=== PATIENT | female | born 1975 | race Two or more races ===

== ENCOUNTER 2023-04-26 15:28 | Outpatient (REF) | payer MEDICAID, SELFPAY ==
--- NOTE | ~2023-04-26 | XR_ITS ---
EXAMINATION: XR LUMBOSACRAL SPINE CLINICAL INFORMATION: Chronic low back pain for years. COMPARISON: None available. TECHNIQUE: AP, and 3 lateral views of the lumbosacral spine. FINDINGS: Lumbar vertebral body heights are preserved. Atherosclerotic aortic calcifications. Facet arthritis in the lower lumbar spine. Mild multilevel lumbar spondylosis. Mild loss of disc space height at L5-S1. Retrolisthesis of L5 on S1 is difficult to evaluate due to overlying soft tissues. Multiple corticated ossicles/calcifications in the soft tissues posterior to the lumbosacral spine. XR/XR lumbar spine 2-3V IMPRESSION: Mild loss of disc space height at L5-S1. Retrolisthesis of L5 on S1 is difficult to evaluate due to overlying soft tissues. Additional imaging with CT scan or MRI should be considered for better visualization as these modalities are much more sensitive for detection of fracture or other underlying pathology.
== END 2023-04-26 15:29 | disposition home or self-care (01) ==
LOC: HO.HHCX 15:28
PROVIDERS: Visit Provider Registered Nurse
DX: M54.50 Low back pain, unspecified (principal)
CPT/HCPCS: 72100

== ENCOUNTER 2023-09-06 12:10 | Outpatient (REF) | payer MEDICAID, SELFPAY ==
[2023-09-07 15:06] LABS: BV Int Neg Control Negative (Negative); BV Int Pos Control Positive (Positive)
== END 2023-09-06 12:11 | disposition home or self-care (01) ==
LOC: HO.HHCLNP 12:10
PROVIDERS: Visit Provider General Practice
DX: N89.8 Other specified noninflammatory disorders of vagina (principal)
CPT/HCPCS: 87480; 87510; 87660